=== PATIENT | female | born 1955 | race Caucasian/White ===

== ENCOUNTER 2017-04-18 10:46 | Inpatient (IN) | payer BC ==
[2017-04-18] MEDS ORDERED: NS 1,000 ML IV ONE ×2 (11:04→11:18)
[2017-04-18] MEDS ORDERED: ONDANSETRON 4 MG/2 ML VIAL IVP ONE (11:04)
--- NOTE | 2017-04-18 11:05 | CPEKG ---
Heart Rate: 80 RR Interval: 750 P-R Interval: 164 QRSD Interval: 106 QT Interval: 360 QTC Interval: 416 P [place]: 35 QRS [place]: 52 T Wave [place]: 73 EKG Severity - NORMAL ECG - EKG Impression: SINUS RHYTHM Electronically Signed By: Chris Merchant 18-Apr-2017 11:22:17
--- NOTE | 2017-04-18 11:05 | CPEKG ---
Heart Rate: 80 RR Interval: 750 P-R Interval: 164 QRSD Interval: 106 QT Interval: 360 QTC Interval: 416 P [place]: 35 QRS [place]: 52 T Wave [place]: 73 EKG Severity - NORMAL ECG - EKG Impression: SINUS RHYTHM Electronically Signed By: Chris Merchant 18-Apr-2017 11:22:17
[2017-04-18] MEDS ORDERED: fentaNYL 100 MCG/2 ML INJ IVP ONE (11:21)
--- NOTE | 2017-04-18 11:21 | EDPHY ---
H & P Stated Complaint: n/v post hemorrhoidectomy yesterday/hypotensive Time Seen by Provider: 04/18/17 10:58 HPI/ROS: CHIEF COMPLAINT: Vomiting, hypotension HISTORY OF PRESENT ILLNESS: The patient is a 61-year-old female with history of asthma & bipolar who comes to the emergency department sent from Dr. Miguelangel Osman's office. She had a thrombosed external hemorrhoid removed in the office yesterday. She had of small amount of bleeding during the procedure and only a small amount of bleeding afterwards however she has been vomiting throughout the night. She states that she vomited 5 times. In his office she was pale and hypotensive. He sent her here with her daughter. She remains hypotensive here at triage. She states that she feels generally weak. No focal weakness. She states that she is exhausted from vomiting so many times. No fevers. She denies shortness of breath although she is satting 89-91%. No recent cough or illness. REVIEW OF SYSTEMS: Constitutional: denies: chills, fever, recent illness, recent injury EENTM: denies: blurred vision, double vision, nose congestion Respiratory: denies: cough, shortness of breath Cardiac: denies: chest pain, irregular heart rate, lightheadedness, palpitations Gastrointestinal/Abdominal: See HPI Genitourinary: denies: dysuria, frequency, hematuria, pain Musculoskeletal: denies: joint pain, muscle pain Skin: denies: lesions, rash, jaundice, bruising Neurological: denies: headache, numbness, paresthesia, tingling, dizziness, weakness Hematologic/Lymphatic: denies: blood clots, easy bleeding, easy bruising Immunologic/allergic: denies: HIV/AIDS, transplant EXAM: GENERAL: Pale, weak HEAD: Atraumatic, normocephalic. EYES: Pupils equal round and reactive to light, extraocular movements intact, sclera anicteric, conjunctiva are normal. ENT: TMs normal, nares patent, oropharynx clear without exudates. Moist mucous membranes. NECK: Normal range of motion, supple without lymphadenopathy or JVD. LUNGS: Breath sounds clear to auscultation bilaterally and equal. No wheezes rales or rhonchi. HEART: Regular rate and rhythm without murmurs, rubs or gallops. ABDOMEN: Soft, nontender, normoactive bowel sounds. No guarding, no rebound. No masses appreciated. Patient had her hemorrhoid evaluated in the office this morning. She declines having me also evaluate it. According Dr. Osman she has bruising but no significant bleeding or sign of infection. BACK: No CVA tenderness, no spinal tenderness, step-offs or deformities EXTREMITIES: Normal range of motion, no pitting or edema. No clubbing or cyanosis. NEUROLOGICAL: Cranial nerves II through XII grossly intact. Normal speech, normal gait. 5/5 strength, normal movement in all extremities, normal sensation PSYCH: Normal mood, normal affect. SKIN: Warm, dry, normal turgor, no visible rashes or lesions. Source: Patient, Family, RN/MD Exam Limitations: No limitations - Personal History Current Tetanus/Diphtheria Vaccine: Yes - Medical/Surgical History Hx Asthma: Yes Hx Chronic Respiratory Disease: No Hx Diabetes: No Hx Cardiac Disease: No Hx Renal Disease: No Hx Cirrhosis: No Hx Alcoholism: No Hx HIV/AIDS: No Hx Splenectomy or Spleen Trauma: No Other PMH: Asthma, CPAP at night, mood disorder/bilat knee replacement - Family History Significant Family History: No pertinent family hx - Social History Smoking Status: Never smoked Alcohol Use: Sober Drug Use: None Constitutional: Initial Vital Signs Temperature (C) 37.3 C 04/18/17 10:53 Heart Rate 80 04/18/17 10:53 Respiratory Rate 20 04/18/17 10:53 Blood Pressure 90/62 L 04/18/17 10:53 O2 Sat (%) 93 04/18/17 10:53 O2 Delivery Mode Room Air O2 (L/minute) 2 Allergies/Adverse Reactions: No Known Allergies Allergy (Unverified 04/18/17 10:51) Home Medications: Medication Instructions Recorded Acetaminophen [Tylenol 325mg (*)] 325 mg PO DAILY PRN 04/18/17 Amoxicillin/Clavulanate Pot 875 mg PO BID PRN 04/18/17 [Augmentin 875 MG TAB (*)] Beclomethasone Qvar 80 [Qvar 80 1 puffs IH BIDI 04/18/17 (*)] Gabapentin [Neurontin 300 MG (*)] 300 mg PO BID 04/18/17 Ibuprofen [Motrin (*)] 200 mg PO DAILY PRN 04/18/17 Ipratropium/Albuterol [Duoneb (*)] 3 ml IH QID PRN 04/18/17 Mometasone/Formoterol [Dulera 200 2 puffs IH BID 04/18/17 Mcg/5 Mcg Inhaler] Pantoprazole Sodium [Protonix 40mg 40 mg PO DAILY 04/18/17 (*)] QUEtiapine FUMARATE [Seroquel 200 200 mg PO HS 04/18/17 mg (*)] Rizatriptan Benzoate [Rizatriptan] 10 mg PO DAILY PRN 04/18/17 Tiotropium Inhaler [Spiriva 1 inh IH DAILY 04/18/17 Inhaler] Xolair 150mg 150 mg SQ Q30D 04/18/17 carBAMazepine ER [Tegretol Xr] 400 mg PO BID 04/18/17 diphenhydrAMINE [Benadryl 25 MG 25 - 50 mg PO DAILY PRN 04/18/17 (*)] hydrOXYzine HCL [hydrOXYzine HCL 50 mg PO Q8HRS PRN 04/18/17 (RX)] methylPREDNISolone 4 mg PO DAILY PRN 04/18/17 [Methylprednisolone] traZODone [traZODONE 50MG (*)] 50 mg PO HS 04/18/17 Medical Decision Making - Diagnostics EKG Interpretation: An EKG obtained and was read and documented in trace view. Please see trace view for full reading and report. Sinus rhythm, no acute ischemic changes ED Course/Re-evaluation: 1:[address] Osman is here and evaluated the patient. She remains slightly hypotensive and pale despite 2 L of fluid. Her blood pressure has improved. We will admit for continued treatment and evaluation. We agreed not to order lactate at this time because would likely be falsely elevated from the surgery. 1:10 p.m. I discussed the case Janelle who will consult from the hospital service. 2:30 p.m. discussed the case with Dr. Andres Nuñez . The patient has improved with IV fluids. She is still slightly hypotensive but MAP greater than 70. We decided to go ahead and lactate and cultures. The patient has been given antibiotics by Dr. Osman. Differential Diagnosis: Partial list of the Differential diagnosis considered include but were not limited to; dehydration, gastritis, and although unlikely based on the history and physical exam, I also considered sepsis, PE, acute coronary disease. I discussed these differential diagnoses and the plan with the [patient] as well as the usual and expected course. The [patient understands] that the diagnosis is provisional and that in medicine we are not always correct and that further workup is often warranted. Usual and customary warnings were given. All of the [patient's] questions were answered. The [patient was] instructed to return to the emergency department should the symptoms at all worsen or return, otherwise to followup with the physician as we discussed. - Data Points Laboratory Results: Laboratory Results 04/18/17 11:10 04/18/17 11:10 Medications Given: Acetaminophen (Tylenol) 650 mg PO Q4HRS PRN PRN Reason: Pain, Mild/Fever, Can Take PO Stop: 10/15/17 13:11 Last Admin: 04/18/17 23:52 Dose: 650 mg Albuterol/Ipratropium (Duoneb) 3 ml IH QID PRN PRN Reason: Short of Breath/Dyspnea Stop: 10/15/17 14:40 Last Admin: 04/18/17 16:21 Dose: 3 ml Beclomethasone Dipropionate (Qvar 80) 1 puffs IH BID WESLEY Stop: 10/15/17 20:59 Last Admin: 04/18/17 21:07 Dose: 1 puffs Calcium Carbonate (Oyster Shell Calcium) 500 mg PO BID WESLEY Stop: 10/15/17 14:59 Last Admin: 04/18/17 20:46 Dose: 500 mg Gabapentin (Neurontin) 300 mg PO BID [place] Stop: 10/15/17 20:59 Last Admin: 04/18/17 20:46 Dose: 300 mg Hydromorphone/Sodium Chloride (Hydromorphone) 0.2 - 0.4 mg IVP Q4HRS PRN PRN Reason: Pain, Severe Unable to Take PO Stop: 04/28/17 13:11 Last Admin: 04/19/17 06:44 Dose: 0.4 mg Hydroxyzine HCl (Hydroxyzine Hcl) 50 mg PO Q8H PRN PRN Reason: Sleep/Insomnia Stop: 10/15/17 20:14 Last Admin: 04/18/17 20:46 Dose: 50 mg Sodium Chloride (Ns) 1,000 mls @ 125 mls/hr IV CONT W[place]LEY Stop: 10/15/17 13:14 Last Admin: 04/18/17 23:52 Dose: 1,000 mls Ertapenem 1 gm/ Sodium (Chloride) 100 mls @ 200 mls/hr IV DAILY EWSLEY PRN Reason: Protocol Stop: 05/18/17 13:59 Last Admin: 04/18/17 16:34 Dose: 100 mls Vancomycin HCl 1.25 gm/ (Dextrose) 250 mls @ 166.667 mls/hr IV Q24H [place] Stop: 05/18/17 15:29 Last Admin: 04/18/17 17:20 Dose: 250 mls Miscellaneous Medication (Mometasone/Formoterol [Dulera 200 Mcg/5 Mcg Inhaler]) 2 puffs IH BID [place] Stop: 10/15/17 20:59 Last Admin: 04/18/17 21:46 Dose: Not Given Ondansetron HCl (Zofran) 4 mg IVP Q4HRS PRN PRN Reason: Nausea/Vomiting, Can't Take PO Stop: 10/15/17 13:11 Last Admin: 04/18/17 16:05 Dose: 4 mg Prednisone (Prednisone) 20 mg PO DAILY [facility] Stop: 10/15/17 14:59 Last Admin: 04/18/17 17:42 Dose: Not Given Quetiapine Fumarate (Seroquel) 200 mg PO HS [facility] Stop: 10/15/17 20:59 Last Admin: 04/18/17 20:46 Dose: 200 mg Trazodone HCl (Trazodone) 50 mg PO HS [facility] Stop: 10/15/17 20:59 Last Admin: 04/18/17 20:46 Dose: 50 mg Discontinued Medications Fentanyl (Sublimaze) 50 mcg IVP EDNOW ONE Stop: 04/18/17 11:22 Last Admin: 04/18/17 11:26 Dose: 50 mcg Sodium Chloride (Ns) 1,000 mls @ 0 mls/hr IV EDNOW ONE; Wide Open PRN Reason: Protocol Stop: 04/18/17 11:05 Last Admin: 04/18/17 11:10 Dose: 1,000 mls Sodium Chloride (Ns) 1,000 mls @ 0 mls/hr IV EDNOW ONE; Wide Open PRN Reason: Protocol Stop: 04/18/17 11:19 Last Admin: 04/18/17 11:19 Dose: 1,000 mls Ondansetron HCl (Zofran) 4 mg IVP EDNOW ONE Stop: 04/18/17 11:05 Last Admin: 04/18/17 11:10 Dose: 4 mg Departure - Departure Disposition: [facility] Inpatient Acute Clinical Impression: Vomiting Qualifiers: Vomiting type: unspecified Vomiting Intractability: unspecified Nausea presence : with nausea Qualified Code(s): R11.2 - Nausea with vomiting, unspecified Hypotension Qualifiers: Hypotension type: unspecified hypotension type Qualified Code(s): I95.9 - Hypotension, unspecified Condition: Critical
[2017-04-18 11:28] LABS: PLATELET COUNT 337 10^3/uL (150-400)
[2017-04-18] MEDS ORDERED: HYDROmorphONE/DILAUDID 1 MG/ML INJ IVP PRN (13:12)
[2017-04-18] MEDS ORDERED: ONDANSETRON DISINTEGRATING 4 MG TAB PO PRN (13:12)
[2017-04-18] MEDS ORDERED: PROMETHAZINE HCL 25 MG/ML INJ IVP PRN (13:12)
--- NOTE | 2017-04-18 14:12 | GHP ---
[f rep st] HISTORY AND PHYSICAL DATE OF ADMISSION: 04/18/2017 CHIEF COMPLAINT: Nausea, vomiting and general malaise. HISTORY OF PRESENT ILLNESS: This is a 61-year-old female who I originally met yesterday in the offic e. At that time, the patient was complaining of perianal pain and tenderness. In the office, I iden tified a small thrombosed external hemorrhoid, and she underwent uneventful incisional drainage of th at hemorrhoid. She left, felt well for the first few hours. Had a bowel movement which had a little bit of blood in it but was otherwise stable. She states that last evening she began to have periana l tenderness once the local anesthesia wore off, and that she began to have nausea, vomiting and gene ral malaise. This persisted through the night. She subsequently called the office this morning. I asked her to come in urgently. I evaluated her in the office. She was hypotensive and looked pale a nd diaphoretic. She denied having any fevers or chills but stated that she just felt unwell. At my request, I transported her from my office with my nurse to the emergency department for evaluation. Since being in the emergency department, she has received some fluid. Her pressure has come up somew hat. She continues to look ill. Her pain is now better and she feels more stable but still looks si ck. PAST MEDICAL HISTORY: Asthma. PAST SURGICAL HISTORY: Bilateral knee replacement a year ago. No abdominal surgeries. External hem orrhoid incisional drainage performed yesterday. FAMILY HISTORY: Noncontributory. SOCIAL HISTORY: Denies illicit drug use. Does use social alcohol. Is a nurse. REVIEW OF SYSTEMS: A full 10-point review was performed and, unless explicitly stated above, is othe rwise negative. PHYSICAL EXAM: VITAL SIGNS: Blood pressure 100/56, temperature 37.3, heart rate 70, and she is 94% on 2 L. CONSTITUTIONAL: She appears sick. She is not in apparent distress, but she is uncomfortabl e. HEENT: Eyes are sunken. Her pupils are equal, round, and reactive to light. Her extraocular mo vements are intact. Ears, nose, mouth and throat: She has dry mucous membranes. Her hearing is nor mal. She has no oral mucosal ulcers. CARDIOVASCULAR: She is hypertensive. She has a regular rate and rhythm. RESPIRATORY: Her lungs are clear to auscultation bilaterally. She has no respiratory d istress. GI: She has normoactive bowel sounds. ABDOMEN: Soft, nondistended, nontender. RECTAL: She has some bruising near the area of incisional drainage. It is tender. I do not appreciate any n ew signs of fluctuance. I do not appreciate any cellulitis or any other concerning findings. SKIN: Warm, normal color. No rashes or abrasions. MUSCULOSKELETAL: She has normal strength. No tendern ess. With normal range of motion. NEUROLOGIC: She is alert and oriented. Her cranial nerves 2-12 are intact. She is weak but almost universally. She has no numbness or any other acute neurologic f indings. PSYCH: She is interacting appropriately, although she appears tired. LYMPH, HEME AND IMMU NOLOGIC: No cervical or supraclavicular lymphadenopathy identified. LABORATORY DATA: White blood cell count elevated to 20,000 with a left shift. H and H are stable at 14 and 41. Chemistry is unremarkable with the exception of an elevated creatinine of 1.5. IMAGING: Includes a chest x-ray, the images of which were personally reviewed by me, which is normal . ASSESSMENT AND PLAN: 61-year-old female status post in-office incisional drainage of a thrombosed ex ternal hemorrhoid. Now with nausea, vomiting, and elevated leukocytosis with dehydration. I am uncl ear as to what is causing this as I do not really see any acute signs other than what I would expect postoperatively from an in-office incisional drainage. There is a little bit of bruising, but I do n ot see any large sores that would be driving this what appears to be somewhat of a septic response, a lthough the patient is not tachycardic. She did respond to fluid in the emergency department. I do feel that she would benefit from at least a night of admission with fluid hydration and empiric antib iotics, although I do not really know what I am treating at this point. I have asked the Medicine Se antonella to see the patient as well for their assistance in treating this patient to ensure that I have not missed anything. I discussed my plans with the patient. She understands. /[id number]/MOD
[2017-04-18 14:39] LABS: INR 1.05 (0.83-1.16); PROTIME(PATIENT) 13.6 SEC (12.0-15.0)
[2017-04-18] MEDS ORDERED: Rizatriptan Benzoate [Rizatriptan] 10 MG PO PRN (14:41)
[2017-04-18] MEDS ORDERED: methylPREDNISolone 4 MG TAB PO PRN (14:41)
--- NOTE | 2017-04-18 14:44 | ASMTCMCOM ---
CM Note CM Note Notes: Pt. is a 61-year-old woman admitted in observation status w/ nausea, vomiting, and general malaise. Per chart, Pt. had hemorrhoid incisional drainage yesterday. Pt. lives w/ her , Isaiah. Plan for independent d/c when ready. Date Signed: 04/18/2017 02:43 PM Electronically Signed By:Jo-Ann Law LCSW
[2017-04-18] MEDS ORDERED: VANCOMYCIN 1.25 GM in D5W 250 ML IV SCH (15:30)
[2017-04-18] MEDS: NS 1,000 ML IV SCH ×2 (15:31→23:52)
[2017-04-18] MEDS: HYDROmorphone HCL/NS/PF 0.4 MG/2 ML SYR IVP PRN (15:31)
[2017-04-18] MEDS: ACETAMINOPHEN 325 MG TAB PO PRN ×2 (15:40→23:52)
[2017-04-18] MEDS: ONDANSETRON 4 MG/2 ML VIAL IVP PRN (16:05)
[2017-04-18] MEDS: IPRATROPIUM/ALBUTEROL 3 ML DEYVIAL IH PRN (16:21)
[2017-04-18] MEDS: ERTAPENEM 1 GM in NS 100 ML IV SCH (16:34)
--- NOTE | 2017-04-18 17:08 | GCON ---
[f rep st] CONSULTATION REASON FOR CONSULTATION: I was asked by Dr. Osman to see this patient in regard to her hypotens ion. HISTORY OF PRESENT ILLNESS: This is a 61-year-old female with asthma who had an external thrombosed hemorrhoid excised yesterday by Dr. Osman. She was not started on any new medications afterward . When she went home, she had significant emesis overnight, about 5 times, nonbloody. She feels juan antonio y poorly. She has had some chills, as well. She has a lot of pain at the site of the hemorrhoid. S he has a cough, but it is chronic. She has no other new rash. No real joint complaints. She has no dysuria. She is on methylprednisone occasionally for her asthma, though she tells me she takes a fe w times a year. PAST MEDICAL/SURGICAL HISTORY: 1. Asthma. 2. Bilateral knee replacement. 3. External thrombosed hemorrhoid. MEDICATIONS: Please see medication reconciliation. FAMILY HISTORY: Reviewed and noncontributory. SOCIAL HISTORY: Does not use illegal drugs. She occasionally drinks alcohol. REVIEW OF SYSTEMS: A 10-point review of systems is conducted and is negative except per HPI. PHYSICAL EXAMINATION: Initial blood pressure was 90/62, heart rate 80, respiration rate 20, saturati ng 93% on room air, T-max 38.1. GENERAL: The patient is a pleasant female who appears quite uncomfo rtable, in no acute distress. HEENT: Normocephalic, atraumatic. CARDIOVASCULAR: Regular rate and rhythm. She has 1/6 systolic murmur. PULMONARY: Lungs clear to auscultation bilaterally. ABDOMEN: Soft. Very mildly tender to palpation. No guarding or rebound. No masses appreciated. : No r jairo. An area of erythema over the left buttock close to where her hemorrhoid was I and D'd. It is w arm. I do not appreciate any real induration or fluctuance. Otherwise, no Delac[place]. NEUROLOGIC: Aler t and oriented x3. Moving all extremities. PSYCHIATRIC: Normal mood and affect. LABORATORY: White count is 20.3 with 93% neutrophils. INR is 1. Creatinine is 1.5. Troponin is ne gative. Influenza is pending. DATA: 1. I discussed this with Dr. Merchant as well as Dr. Osman. 2. I personally viewed and interpreted her chest x-ray; this shows normal heart size AND no acute in filtrates. 3. I reviewed her EKG THAT shows sinus rhythm. There are no ST or T-wave changes. It is normal. IMPRESSION AND PLAN: 1. Hypotension: Suspect hypovolemia as well as sepsis physiology. It is improved with IV fluids in the emergency department. Will continue to monitor. She has also been on somewhat chronic steroids . Could be a component of adrenal insufficiency. 2. Sepsis: I think the source is cellulitis surrounding the external hemorrhoid which was I and D'd . Agree with empiric ertapenem for which Dr. Osman has written. I will add vancomycin, as well , since the incision was made in a physician's office. Blood cultures are being drawn. Will check l actate. 3. Possible adrenal insufficiency: I will give her a slightly higher dose prednisone. She is not c urrently in shock, but if her condition worsens, would add stress dose steroids. 4. Asthma: Seems stable. Will continue her inhalers. 5. Suspected acute kidney injury: This will be prerenal and likely resolve with IV fluids. Thank you for this consultation. We will continue to follow with you. /[id number]/MODL
[2017-04-18] MEDS: CALCIUM CARBONATE 500 MG TAB PO SCH ×2 (17:42→20:46)
[2017-04-18] MEDS: predniSONE 20 MG TAB PO SCH (17:42)
[2017-04-18] MEDS: hydrOXYzine HCL 50 MG TAB PO PRN (20:46)
[2017-04-18] MEDS: QUEtiapine FUMARATE 200 MG TAB PO SCH (20:46)
[2017-04-18] MEDS: GABAPENTIN 300 MG CAP PO SCH (20:46)
[2017-04-18] MEDS: traZODone 50 MG TAB PO SCH (20:46)
[2017-04-18] MEDS: BECLOMETHASONE QVAR 80 MDI IH SCH (21:07)
[2017-04-18] MEDS: Mometasone/Formoterol [Dulera 200 Mcg/5 Mcg Inhaler] IH SCH (21:46)
[2017-04-19] MEDS: HYDROmorphone HCL/NS/PF 0.4 MG/2 ML SYR IVP PRN (06:44)
[2017-04-19 07:00] LABS: PLATELET COUNT 230 10^3/uL (150-400)
[2017-04-19] MEDS: ONDANSETRON 4 MG/2 ML VIAL IVP PRN (08:59)
[2017-04-19] MEDS: ERTAPENEM 1 GM in NS 100 ML IV SCH (08:59)
[2017-04-19] MEDS ORDERED: TIOTROPIUM INHALER 18 MCG/DOSE 5 DOSE/MDI IH SCH (09:00)
[2017-04-19] MEDS: ACETAMINOPHEN 325 MG TAB PO PRN ×2 (09:09→16:56)
[2017-04-19] MEDS: BECLOMETHASONE QVAR 80 MDI IH SCH ×2 (09:13→21:13)
[2017-04-19] MEDS: Mometasone/Formoterol [Dulera 200 Mcg/5 Mcg Inhaler] IH SCH ×3 (09:14→21:14)
--- NOTE | 2017-04-19 09:56 | HOSPPROG ---
Hospitalist Progress Note Assessment/Plan: Sepsis secondary to librado-anal cellulitis (?abscess) s/p excision of thrombosed external hemorrhoid POD #2 - Also note pyuria on UA. BCx's pending. Lactate nl. WBC's remain elevated. -area of fluctuance on exam, surgery to perform bedside I&D, wound culture ordered -cont erta / vanc, follow culture data and tailor atbx as indicated -pain control ?Adrenal insufficiency - hypotension in setting of chronic steroid use. -cont higher dose of pred -stress dose steroids if problems with hypotension GEREMIAS - Baseline unknown, Cr 1.5 --> 1.4. Still appears dry. -1L NS bolus now -cont IVF's Asthma - no e/o acute exacerbation -cont home meds Full code Dispo - change to inpt, will requiring ongoing inpt care for sepsis / cellulitis / abscess Subjective: Pt c/o nausea after taking some broth. She c/o some abdominal bloating. Still having some pain from excised hemorrhoid. Tmax 38.4 overnight. No vomiting. Objective: Vital Signs Temp Pulse Resp BP Pulse Ox 36.9 C 88 20 96/59 L 93 04/19/17 07:32 04/19/17 07:32 04/19/17 07:32 04/19/17 07:32 04/19/17 07:32 Laboratory Results 04/19/17 06:30 04/19/17 06:30 04/18/17 04/19/17 04/20/17 05:59 05:59 05:59 Intake Total 750 Output Total 400 Balance 350 PT 13.6 SEC (12.0-15.0) 04/18/17 11:15 INR 1.05 (0.83-1.16) 04/18/17 11:15 - Physical Exam Constitutional: no apparent distress Eyes: PERRL Ears, Nose, Mouth, Throat: moist mucous membranes Cardiovascular: regular rate and rhythym Respiratory: no respiratory distress, clear to auscultation Gastrointestinal: normoactive bowel sounds, soft, non-tender abdomen Genitourinary: other (right buttock with erythema and fluctuance concerning for abscess) Skin: warm Neurologic: AAOx3 Psychiatric: interacting appropriately ICD10 Worksheet Patient Problems: Problems Problem Status Onset Hypotension Acute Vomiting Acute
[2017-04-19] MEDS ORDERED: NS 1,000 ML IV ONE (10:10)
[2017-04-19] MEDS ORDERED: LIDOCAINE 1% 2 ML INJ ID ONE (10:16)
[2017-04-19] MEDS ORDERED: LIDOCAINE 1% 5 ML SDV ONE (10:19)
--- NOTE | 2017-04-19 10:31 | PDMN ---
Medical Necessity Medical necessity: C/M review: Pt. meets INPT criteria under MCG M-70 Cellulitis; Acute and persistent sepsis secondary to librado-anal cellulitis ( possible abscess) S/P excision of thrombosed external hemorrhoid, pyuria on UA, questionable adrenal insufficiency, hypotension in the setting of chronic steroid use, acute kidney injury, WBC 20.39, 19.95, procalcitonin 2.16, 38.4 T max, BP range 100/56-89/48 requiring ongoing IV Ertapenem QD, Vancomycin Q 24 hrs., IV fluids, comorbid asthma. MD anticipates > 2 MN for ongoing med nec for eval and TX of above.
[2017-04-19] MEDS: oxyCODONE IR 5 MG TAB PO PRN ×2 (10:38→16:57)
--- NOTE | 2017-04-19 11:08 | ASMTCMCOM ---
CM Note CM Note Notes: Pt had stat team call yesterday afternoon, she is septic and had blood cx drawn. PT to evaluate her when she is feeling better, otherwise CM anticipates she will be independent when medically stable, LYDIA w/f. Date Signed: 04/19/2017 11:08 AM Electronically Signed By:Marilu Blake RN
[2017-04-19] MEDS: IPRATROPIUM/ALBUTEROL 3 ML DEYVIAL IH PRN (11:42)
[2017-04-19] MEDS: PANTOPRAZOLE SODIUM 40 MG TAB PO SCH (11:48)
[2017-04-19] MEDS: predniSONE 20 MG TAB PO SCH (11:48)
[2017-04-19] MEDS: CALCIUM CARBONATE 500 MG TAB PO SCH ×2 (11:48→21:12)
[2017-04-19] MEDS: GABAPENTIN 300 MG CAP PO SCH ×2 (11:48→21:12)
[2017-04-19] MEDS: NS 1,000 ML IV SCH ×2 (12:05→21:55)
--- NOTE | 2017-04-19 12:50 | SOAPPROG ---
SOAP Progress Note Assessment/Plan: Assessment: 61yo F s/p hemorrhoidectomy in the office with perianal cellulitis ? abscess of left buttock on exam today. Incision and drainage performed. See procedure note Wound culture pending, blood cultures pending IV ertapenem and vancomycin Appreciate hospitalists. Continue inpatient. Seen c Dr. Joel and Dr. Talavera. S: feeling worse this morning. perirectal pain. O: laying in bed, appears acutely ill, at bedside No increased WOB Skin warm to the touch Rectal exam shows unremarkable hemorrhoidectomy site. Bruising of left buttock with evolving area of induration and fluctuance. Incision and drainage performed - see procedure note. No gross purulence. Objective: Vital Signs Temp Pulse Resp BP Pulse Ox 36.9 C 88 18 92/52 L 93 04/19/17 11:36 04/19/17 11:40 04/19/17 11:40 04/19/17 11:36 04/19/17 11:40 04/18/17 04/19/17 04/20/17 05:59 05:59 05:59 Output Total 550 Balance -550 PT 13.6 SEC (12.0-15.0) 04/18/17 11:15 INR 1.05 (0.83-1.16) 04/18/17 11:15 ICD10 Worksheet Patient Problems: Problems Problem Status Onset Hypotension Acute Vomiting Acute
--- NOTE | 2017-04-19 15:18 | GPN ---
[f rep st] PROCEDURE NOTE DATE OF PROCEDURE: 04/19/2017 PREPROCEDURE DIAGNOSIS: Left buttock induration and fluctuance. POSTPROCEDURE DIAGNOSIS: Left buttock induration and fluctuance. PROCEDURE PERFORMED: Incision and drainage of left buttock induration and fluctuance. INDICATION: The patient is a 61-year-old woman who underwent hemorrhoidectomy and developed symptoms of infection. She was admitted for IV antibiotics. Today, she developed worsening induration and e rythema of her left buttock. DESCRIPTION OF PROCEDURE: The patient was verbally consented for the procedure. A timeout was perfo rmed. The area was prepped in the usual sterile fashion. I infiltrated the site with 5 cc of 1% lid ocaine. I made a cruciate incision over top of the area of induration. I dissected down through the soft tissue. There was a small amount of serous fluid but no gross purulence. I probed without def ining a true abscess cavity. I irrigated the wound with 10 cc of normal saline. A wound culture was obtained. I then dressed the wound with plain gauze dressing. She tolerated the procedure well. /[id number]/MODL
[2017-04-19] MEDS ORDERED: VANCOMYCIN 1.25 GM in D5W 250 ML IV SCH (17:00)
[2017-04-19] MEDS: QUEtiapine FUMARATE 200 MG TAB PO SCH (21:12)
[2017-04-19] MEDS: traZODone 50 MG TAB PO SCH (21:12)
[2017-04-19] MEDS: hydrOXYzine HCL 50 MG TAB PO PRN (21:53)
[2017-04-20] MEDS: ACETAMINOPHEN 325 MG TAB PO PRN ×3 (02:06→20:33)
[2017-04-20] MEDS: oxyCODONE IR 5 MG TAB PO PRN ×4 (03:53→20:33)
[2017-04-20 06:10] LABS: PLATELET COUNT 158 10^3/uL (150-400)
[2017-04-20] MEDS ORDERED: PROTOCOL CALCIUM 1 DOSE IV PRN (06:26)
[2017-04-20] MEDS: NS 1,000 ML IV SCH (06:50)
[2017-04-20] MEDS: ERTAPENEM 1 GM in NS 100 ML IV SCH (08:42)
[2017-04-20] MEDS: PANTOPRAZOLE SODIUM 40 MG TAB PO SCH (08:44)
[2017-04-20] MEDS: CALCIUM CARBONATE 500 MG TAB PO SCH ×2 (08:44→20:33)
[2017-04-20] MEDS: GABAPENTIN 300 MG CAP PO SCH ×2 (08:44→20:33)
[2017-04-20] MEDS: Mometasone/Formoterol [Dulera 200 Mcg/5 Mcg Inhaler] IH SCH ×2 (10:56→19:42)
[2017-04-20] MEDS: TIOTROPIUM INHALER 18 MCG/DOSE 5 DOSE/MDI IH SCH (10:56)
[2017-04-20] MEDS: BECLOMETHASONE QVAR 80 MDI IH SCH ×2 (10:57→19:42)
[2017-04-20] MEDS ORDERED: POLYETHYLENE GLYCOL 3350 17 GM PKT PO PRN (11:01)
--- NOTE | 2017-04-20 11:03 | HOSPPROG ---
Hospitalist Progress Note Assessment/Plan: Sepsis secondary to librado-anal cellulitis s/p excision of thrombosed external hemorrhoid POD #3 - BCx's NGTD. Lactate nl. WBC's trending down. Clinically improving. -Bedside I&D yesterday, no orgs on GS, wound Cx pending -cont erta / vanc, follow culture data and tailor atbx as indicated -consider ID consult if not improving -pain control ?Adrenal insufficiency - she is not actually on chronic steroids, doubt adrenal insufficiency -dc prednisone GEREMIAS - Cr normalized with IVF's, can stop now Asthma - no e/o acute exacerbation. Confirmed with pt that she does not take regular steroids. -dc prednisone, no wheezing Full code Dispo - cont inpt Subjective: Pt feels better today. Reports improved pain after bedside I&D of left buttock yesterday. No fevers overnight. No N/V/D. Objective: Vital Signs Temp Pulse Resp BP Pulse Ox 36.3 C 72 18 102/63 96 04/20/17 07:31 04/20/17 07:31 04/20/17 07:31 04/20/17 07:31 04/20/17 07:31 Microbiology 04/19/17 11:30 Gram Stain - Final Buttock - Swab Laboratory Results 04/20/17 05:33 04/20/17 04:45 04/19/17 04/20/17 04/21/17 05:59 05:59 05:59 Intake Total 3975 Output Total 2350 Balance 1625 PT 13.6 SEC (12.0-15.0) 04/18/17 11:15 INR 1.05 (0.83-1.16) 04/18/17 11:15 - Physical Exam Constitutional: no apparent distress Eyes: PERRL Ears, Nose, Mouth, Throat: moist mucous membranes Cardiovascular: regular rate and rhythym, no murmur, rub, or gallop Respiratory: no respiratory distress, clear to auscultation Gastrointestinal: normoactive bowel sounds, soft, non-tender abdomen Skin: other (left buttock with more prominent cellulitis, incision without purulent drainage) Musculoskeletal: full muscle strength Neurologic: AAOx3 Psychiatric: interacting appropriately ICD10 Worksheet Patient Problems: Problems Problem Status Onset Hypotension Acute Vomiting Acute
[2017-04-20] MEDS: predniSONE 20 MG TAB PO SCH (11:25)
--- NOTE | 2017-04-20 11:52 | SOAPPROG ---
SOAP Progress Note Assessment/Plan: Assessment: 61yo F s/p hemorrhoidectomy in the office with perianal cellulitis Incision and drainage performed yesterday of left buttock induration. No purulence. Wound culture pending. Clinically improved today. Erythema improving and less indurated in the area. Unsure if erythema and induration related to hemorrhoidectomy or a separate process. Ipsilateral but far away from incision IV ertapenem and vancomycin Appreciate hospitalists. Continue inpatient. Discussed c Dr. Joel. S: feeling better this morning. pain less than yesterday. No fevers, slight chills. Minimal drainage from perirectal wound. O: sitting upright in chair, comfortable, NAD, sister at bedside No increased WOB Rectal exam shows unremarkable hemorrhoidectomy site. Bruising of left buttock improving. Area of induration and erythema of left buttock significantly smaller than yesterday, less tender to palpation. No purulence. I&D wound CDI, gauze dressing placed, no packing. 04/28/17 11:45 Objective: Vital Signs Temp Pulse Resp BP Pulse Ox 36.3 C 72 18 102/63 96 04/20/17 07:31 04/20/17 07:31 04/20/17 07:31 04/20/17 07:31 04/20/17 07:31 Microbiology 04/19/17 11:30 Gram Stain - Final Buttock - Swab Laboratory Results 04/20/17 05:33 04/20/17 04:45 04/19/17 04/20/17 04/21/17 05:59 05:59 05:59 Intake Total 3975 Output Total 2350 Balance 1625 PT 13.6 SEC (12.0-15.0) 04/18/17 11:15 INR 1.05 (0.83-1.16) 04/18/17 11:15 ICD10 Worksheet Patient Problems: Problems Problem Status Onset Hypotension Acute Vomiting Acute
[2017-04-20] MEDS ORDERED: CALCIUM GLUCONATE 50 ML IV ONE (12:55)
[2017-04-20] MEDS: DOCUSATE SODIUM 100 MG CAP PO SCH ×2 (13:08→20:33)
[2017-04-20] MEDS: ONDANSETRON 4 MG/2 ML VIAL IVP PRN (13:08)
[2017-04-20] MEDS: VANCOMYCIN 1.5 GM in D5W 250 ML IV SCH (17:22)
[2017-04-20] MEDS ORDERED: NS 1,000 ML IV SCH (19:00)
[2017-04-20] MEDS: IPRATROPIUM/ALBUTEROL 3 ML DEYVIAL IH PRN (19:41)
[2017-04-20] MEDS: traZODone 50 MG TAB PO SCH (20:33)
[2017-04-20] MEDS: QUEtiapine FUMARATE 200 MG TAB PO SCH (20:33)
[2017-04-20] MEDS: carBAMazepine ER 200 MG TAB PO SCH (20:33)
[2017-04-20] MEDS ORDERED: NS 500 ML IV ONE ×2 (22:37→23:00)
[2017-04-21] MEDS: oxyCODONE IR 5 MG TAB PO PRN ×3 (03:31→20:50)
[2017-04-21 04:00] LABS: PLATELET COUNT 174 10^3/uL (150-400)
[2017-04-21] MEDS: BECLOMETHASONE QVAR 80 MDI IH SCH ×2 (08:42→20:32)
[2017-04-21] MEDS: IPRATROPIUM/ALBUTEROL 3 ML DEYVIAL IH PRN (08:42)
[2017-04-21] MEDS: TIOTROPIUM INHALER 18 MCG/DOSE 5 DOSE/MDI IH SCH (08:42)
[2017-04-21] MEDS: Mometasone/Formoterol [Dulera 200 Mcg/5 Mcg Inhaler] IH SCH ×2 (08:42→20:33)
[2017-04-21] MEDS: PANTOPRAZOLE SODIUM 40 MG TAB PO SCH (09:00)
[2017-04-21] MEDS: GABAPENTIN 300 MG CAP PO SCH ×2 (09:00→20:50)
[2017-04-21] MEDS: DOCUSATE SODIUM 100 MG CAP PO SCH ×2 (09:00→20:50)
[2017-04-21] MEDS: carBAMazepine ER 200 MG TAB PO SCH ×2 (09:00→20:50)
[2017-04-21] MEDS: CALCIUM CARBONATE 500 MG TAB PO SCH ×2 (09:00→20:50)
[2017-04-21] MEDS: ERTAPENEM 1 GM in NS 100 ML IV SCH (09:41)
--- NOTE | 2017-04-21 10:41 | HOSPPROG ---
Hospitalist Progress Note Assessment/Plan: Sepsis secondary to librado-anal cellulitis s/p excision of thrombosed external hemorrhoid POD #4 - BCx's NGTD. Lactate nl. WBC's trending down. Clinically, she has persistent erythema of the buttock with fluctuance and tenderness extending into perineal region. -Bedside I&D 04/19 without return of pus, no orgs on GS, wound Cx pending -cont erta / vanc, follow culture data and tailor atbx as indicated -though decreasing wbc's noted, given worsening exam, will obtain pelvic MRI today to evaluate for abscess -will consult ID for opinion regarding atbx coverage -pain control ?Adrenal insufficiency - she is not actually on chronic steroids, thus prednisone was d/c'd. However, hypotension noted last night which improved with IVF's -will add-on AM cortisol to this morning's labs. If low, will do ACTH stim test in am GEREMIAS - Cr normalized with IVF's Asthma - no e/o acute exacerbation. Confirmed with pt that she does not take regular steroids. -cont home inhalers, prn albuterol Hypoxia - requiring 2-3 liters since admission. Initial CXR negative. May be a component of obesity hypoventilation. She has no tachycardia, chest pain or pleuritic symptoms. -IS -wean O2 as able Full code Dispo - cont inpt Subjective: Pt feels ok. Still having quite a bit of pain on bottom. She cannot sit or scoot. Had a fever yesterday afternoon. Low BP last night, requiring resumption of IVF's. No more shivering. Objective: Vital Signs Temp Pulse Resp BP Pulse Ox 36.6 C 74 16 103/69 97 04/21/17 08:00 04/21/17 08:46 04/21/17 08:46 04/21/17 08:00 04/21/17 08:46 Microbiology 04/19/17 11:30 Gram Stain - Final Buttock - Swab Laboratory Results 04/21/17 03:50 04/21/17 03:50 04/20/17 04/21/17 04/22/17 05:59 05:59 05:59 Intake Total 3975 4525 Output Total 2350 400 500 Balance 1625 4125 -500 PT 13.6 SEC (12.0-15.0) 04/18/17 11:15 INR 1.05 (0.83-1.16) 04/18/17 11:15 - Physical Exam Constitutional: no apparent distress Eyes: PERRL Ears, Nose, Mouth, Throat: moist mucous membranes Cardiovascular: regular rate and rhythym Respiratory: no respiratory distress, clear to auscultation Gastrointestinal: normoactive bowel sounds, soft, non-tender abdomen Genitourinary: other (left buttock with persisent erythema, no drainage from I& D site, but palpable fluctuance extending into perineal region) Skin: warm Musculoskeletal: full muscle strength Neurologic: AAOx3 Psychiatric: interacting appropriately ICD10 Worksheet Patient Problems: Problems Problem Status Onset Hypotension Acute Vomiting Acute
[2017-04-21] MEDS ORDERED: CALCIUM GLUCONATE 50 ML IV ONE (11:49)
[2017-04-21] MEDS: ALBUTEROL 3 ML DEYVIAL IH PRN ×2 (11:57→20:36)
[2017-04-21] MEDS: ENOXAPARIN 40 MG/0.4 ML SYR SC SCH (13:14)
[2017-04-21] MEDS: HYDROmorphone HCL/NS/PF 0.4 MG/2 ML SYR IVP PRN ×2 (14:18→18:28)
[2017-04-21] MEDS ORDERED: GADOBUTROL 10 ML VIAL IVP ONE (14:31)
--- NOTE | 2017-04-21 16:56 | SOAPPROG ---
SOAP Progress Note Assessment/Plan: Assessment: 61yo F s/p hemorrhoidectomy in the office with perianal cellulitis Incision and drainage performed over the weekend of left buttock induration. No purulence. Wound culture shows strep pyogenes group A Erythema worse of left buttock, worsening pain IV ertapenem and vancomycin Appreciate hospitalists. Id consult today Pelvic MRI Discussed with Dr. Talavera and Dr. Bolaños S: Feels worse again today. Unable to ambulate like she did yesterday. Worsening pain of buttock. O: sitting upright in chair, comfortable, NAD, daughter at bedside No increased WOB Rectal exam shows unremarkable hemorrhoidectomy site. Bruising of left buttock much more indurated, erythematous and tender today. I&D site clean and dry. Objective: Vital Signs Temp Pulse Resp BP Pulse Ox 37.3 C 83 16 102/50 L 95 04/21/17 16:00 04/21/17 16:00 04/21/17 16:00 04/21/17 16:00 04/21/17 16:00 Microbiology 04/19/17 14:40 Urine Culture - Final Urine,Clean Catch 04/19/17 11:30 Gram Stain - Final Buttock - Swab Wound Culture - Final Streptococcus Pyogenes Grp A Laboratory Results 04/21/17 03:50 04/21/17 03:50 04/20/17 04/21/17 04/22/17 05:59 05:59 05:59 Intake Total 3975 4525 Output Total 2350 400 500 Balance 1625 4125 -500 PT 13.6 SEC (12.0-15.0) 04/18/17 11:15 INR 1.05 (0.83-1.16) 04/18/17 11:15 ICD10 Worksheet Patient Problems: Problems Problem Status Onset Hypotension Acute Vomiting Acute
[2017-04-21] MEDS: VANCOMYCIN 1.5 GM in D5W 250 ML IV SCH (17:07)
[2017-04-21] MEDS: QUEtiapine FUMARATE 200 MG TAB PO SCH (20:50)
[2017-04-21] MEDS: traZODone 50 MG TAB PO SCH (20:50)
[2017-04-21] MEDS: ACETAMINOPHEN 325 MG TAB PO PRN (20:51)
--- NOTE | 2017-04-22 04:18 | GCON ---
[f rep st] CONSULTATION INPATIENT INFECTIOUS DISEASE CONSULTATION REFERRING PHYSICIAN: Mariaelena Talavera MD REASON FOR REFERRAL: Left buttock cellulitis, possible perirectal postoperative infection. HISTORY OF PRESENT ILLNESS: Patient is a 61-year-old female who was admitted to [facility] of [facility] through the emergency room on 04/18/2017. Patient had previously undergone an incisional draina ge of a small thrombosed external hemorrhoid in General Surgery office the week prior. Patient had i ncreasing perianal tenderness that evolved into nausea, vomiting, and general malaise. She was seen in followup at her surgeon's office where she was found to be hypotensive and diaphoretic. She was n oted in the ER to be generally weak and somewhat hypotensive. Her oxygen saturations were borderline low. She was admitted to the hospitalist service and begun on a combination of vancomycin and ertap enem. Her initial laboratory showed a significant leukocytosis to 20.4. There was some concern that induration in the gluteal area, somewhat from the perirectal region on the left side, rahda remigio a drainable collection. She underwent an incision and drainage of that on 04/19/2017. No signif icant fluid was recovered. The following day, on 04/20, she felt much better. Today, she has somewh at of a return of her general weakness and malaise, together with continued pain in the perirectal re gion. She underwent an MRI earlier today. She continues to tolerate her vancomycin ertapenem withou t clear issue. PAST MEDICAL HISTORY: Asthma. PAST SURGICAL HISTORY: 1. Status post bilateral total knee arthroplasties. 2. Status post external hemorrhoid incision and drainage. ANTIBIOTICS: 1. Vancomycin. 2. Ertapenem. ALLERGIES: Patient has no known medical allergies. SOCIAL HISTORY: Patient is a former nurse. She denies any significant tobacco, alcohol, or drug use . FAMILY HISTORY: Reviewed but noncontributory. REVIEW OF SYSTEMS: Other than that detailed above in the History of Present Illness, a comprehensive 10-system review is negative. PHYSICAL EXAMINATION: VITAL SIGNS: Temperature maximum 38.7, temperature current 36.8. Heart rate is 80, respiratory rate is 16, blood pressure is 109/62. GENERAL: Patient is a well-formed, overwei ght, older female in no acute distress. She is mildly toxic in appearance. She is alert and oriente d x3. She is pleasant in demeanor. HEENT: Normocephalic for age. Atraumatic. No scleral icterus. No oral lesion. No drainage from the nares. Eyes: Lids and conjunctivae are within normal limits . Pupils are equal and round bilaterally. NECK: Supple. No meningismus. LUNGS: Clear to auscult ation bilaterally with good effort. HEART: Regular rate and rhythm. No significant peripheral johnathon a. SKIN: Warm and dry to the touch. Patient has some induration notable in the left gluteal region . She has a superficial healing incisional drainage area on the left side. Her induration tracts up al to the perirectal verge. She is significantly tender on the left side at the perirectal region. No fluctuance noted. MUSCULOSKELETAL: No other muscle belly tenderness is noted. No joint line e ffusion or arthritis is seen. NEURO: Cranial nerves 2-12 seem to be intact. Peripheral sensation s eems intact in extremities. LABORATORY DATA: Patient has a CBC dated 04/21/2017, shows a white blood cell count of 9.7, hemoglob in 9.0, hematocrit of 27.0, platelet count 174. Differential is within normal limits. Serum adjunct instructor chemistry giuseppe on 04/21/2017 show a sodium of 139, potassium of 4.2, chloride of 112, bicarbonate of 21, BUN of 9, creatinine of 0.9. Influenza PCRs were negative on 04/18. Vancomycin trough on 04/20 is 6.5. Microbiologic data: Patient had a buttock swab dated 04/19/2017, shows 1+ polymorphonuclear white ce lls. The growth is mixed cutaneous nuno with rare amounts of group A strep found. ASSESSMENT: Perirectal phlegmon on the left side, suspect secondary to the incision and drainage of the small thrombosed hemorrhoid. There does not appear to be a drainable focus of collection here. I do not believe the group A strep on the culture of the buttock swab is indicative of the causative agent here. Given the mechanism of infection in a rectal surgery, I suspect that breadth of coverage is still important. However at this point, I do not believe that there is significant reason to con tinue vancomycin for coverage of resistant gram positives. I suspect ertapenem alone would be able t o accomplish this. We will discontinue the vancomycin today, and continue on with ertapenem monother apy. PLAN: 1. Continue ertapenem at 1 g daily. 2. Discontinue vancomycin. 3. Follow her clinical course of improvement. /[id number]/MODL
[2017-04-22] MEDS: ACETAMINOPHEN 325 MG TAB PO PRN (05:51)
[2017-04-22 05:59] LABS: PLATELET COUNT 208 10^3/uL (150-400)
[2017-04-22] MEDS ORDERED: COSYNTROPIN 0.25 MG/2 ML SYRINGE IVP ONE (06:00)
[2017-04-22] MEDS: ERTAPENEM 1 GM in NS 100 ML IV SCH (08:27)
[2017-04-22] MEDS: Mometasone/Formoterol [Dulera 200 Mcg/5 Mcg Inhaler] IH SCH ×2 (08:29→21:24)
[2017-04-22] MEDS: BECLOMETHASONE QVAR 80 MDI IH SCH ×2 (08:29→21:24)
[2017-04-22] MEDS: TIOTROPIUM INHALER 18 MCG/DOSE 5 DOSE/MDI IH SCH (08:30)
[2017-04-22] MEDS: carBAMazepine ER 200 MG TAB PO SCH ×2 (08:33→21:42)
[2017-04-22] MEDS: PANTOPRAZOLE SODIUM 40 MG TAB PO SCH (08:34)
[2017-04-22] MEDS: GABAPENTIN 300 MG CAP PO SCH ×2 (08:34→21:42)
--- NOTE | 2017-04-22 12:26 | PDANEPAE ---
ANE History of Present Illness 61 year old female w/ PMHx of Asthma, OCTAVIA on CPAP, Bi-polar disorder and recent hemorrhoid excision presents for exam under anesthesia. ANE Past Medical History - Cardiovascular History Hx Hypertension: No Hx Arrhythmias: No Hx Chest Pain: No Hx Coronary Artery / Peripheral Vascular Disease: No Hx CHF / Valvular Disease: No Hx Palpitations: No - Pulmonary History Hx COPD: No Hx Asthma/Reactive Airway Disease: Yes Hx Recent Upper Respiratory Infection: No Hx Oxygen in Use at Home: No Hx Sleep Apnea: Yes Sleep Apnea Screening Result - Last Documented: Positive Pulmonary History Comment: OCTAVIA on CPAP - Neurologic History Hx Cerebrovascular Accident: No Hx Seizures: No Hx Dementia: No - Endocrine History Hx Diabetes: No Hypothyroid: No Hyperthyroid: No Obesity: no - Renal History Hx Renal Disorders: No - Liver History Hx Hepatic Disorders: No - Neurological & Psychiatric Hx Hx Neurological and Psychiatric Disorders: Yes Neurological / Psychiatric History Comment: Bipolar disorder - Cancer History Hx Cancer: No - Congenital Disorder History Hx Congenital Disorders: No - GI History GERD: moderate Gastrointestinal History Comment: Hemorrhoid - Other Health History Other Health History: anemia ANE Review of Systems Review of systems is: negative Review of Systems: - Exercise capacity Exercise capacity: >=4 METS ANE Patient History - Allergies Allergies/Adverse Reactions: No Known Allergies Allergy (Unverified 04/18/17 10:51) - Home Medications Home medications: home medication list seen and reviewed Home Medications: Acetaminophen [Tylenol 325mg (*)] 325 mg PO DAILY PRN 04/18/17 [Last Taken Unknown] Amoxicillin/Clavulanate Pot [Augmentin 875 MG TAB (*)] 875 mg PO BID PRN [Last Taken Unknown] Beclomethasone Qvar 80 [Qvar 80 (*)] 1 puffs IH BIDI 04/18/17 [Last Taken 21:00] Gabapentin [Neurontin 300 MG (*)] 300 mg PO BID 04/18/17 [Last Taken 04/17/17 21 :00] Ibuprofen [Motrin (*)] 200 mg PO DAILY PRN 04/18/17 [Last Taken 04/17/17 21:00] Ipratropium/Albuterol [Duoneb (*)] 3 ml IH QID PRN 04/18/17 [Last Taken Unknown] Mometasone/Formoterol [Dulera 200 Mcg/5 Mcg Inhaler] 2 puffs IH BID 04/18/17 [ Last Taken 04/17/17 21:00] Pantoprazole Sodium [Protonix 40mg (*)] 40 mg PO DAILY 04/18/17 [Last Taken ] QUEtiapine FUMARATE [Seroquel 200 mg (*)] 200 mg PO HS 04/18/17 [Last Taken ] Rizatriptan Benzoate [Rizatriptan] 10 mg PO DAILY PRN 04/18/17 [Last Taken Unknown] Tiotropium Inhaler [Spiriva Inhaler] 1 inh IH DAILY 04/18/17 [Last Taken ] Xolair 150mg 150 mg SQ Q30D 04/18/17 [Last Taken 04/10/17] carBAMazepine ER [Tegretol Xr] 400 mg PO BID 04/18/17 [Last Taken 04/17/17 21:00 ] diphenhydrAMINE [Benadryl 25 MG (*)] 25 - 50 mg PO DAILY PRN 04/18/17 [Last Taken Unknown] hydrOXYzine HCL [hydrOXYzine HCL (RX)] 50 mg PO Q8HRS PRN 04/18/17 [Last Taken 04/17/17 21:00] methylPREDNISolone [Methylprednisolone] 4 mg PO DAILY PRN 04/18/17 [Last Taken Unknown] traZODone [traZODONE 50MG (*)] 50 mg PO HS 04/18/17 [Last Taken 04/17/17] - NPO status NPO Status: no food or drink >8 hours NPO Since - Liquids (Date): 04/22/17 NPO Since - Liquids (Time): 00:05 NPO Since - Solids (Date): 04/21/17 NPO Since - Solids (Time): 18:00 - Anes Hx Anes Hx: no prior problems - Smoking Hx Smoking Status: Never smoked Marijuana use: No - Alcohol Use Alcohol Use: Occasionally - Family Anes Hx Family Anes Hx: neg - N/A ANE Labs/Vital Signs - Labs Result Diagrams: 04/22/17 05:44 04/21/17 03:50 - Vital Signs Vital Signs: reviewed preoperatively; see RN documention for details Blood Pressure: 126/66 Heart Rate: 69 Respiratory Rate: 16 O2 Sat (%): 98 Height: 170.18 cm Weight: 97.522 kg ANE Physical Exam - Airway Neck exam: FROM Mallampati Score: Class 2 Mouth exam: normal dental/mouth exam - Pulmonary Pulmonary: no respiratory distress - Cardiovascular Cardiovascular: regular rate and rhythym - ASA Status ASA Status: II, III ANE Anesthesia Plan Anesthesia Plan: general endotracheal anesthesia, GA w LMA
--- NOTE | 2017-04-22 12:27 | PCMIDPN ---
Assessment/Plan: Assessment/Plan: 1. left buttock erythema/induraiton with perirectal phlegmon:- -Likely polymicrobial involvement - going to OR today for drainage -currently on invanz. - continue for now. meds invanz Subjective: afebrile. doens't feel well today. has pain. not moving bowel but passing gas. denies sob. Objective: Vital Signs Temp Pulse Resp BP Pulse Ox 36.9 C 69 16 126/66 H 98 04/22/17 12:00 04/22/17 12:00 04/22/17 12:00 04/22/17 12:00 04/22/17 12:00 Microbiology 04/19/17 14:40 Urine Culture - Final Urine,Clean Catch 04/19/17 11:30 Gram Stain - Final Buttock - Swab Wound Culture - Final Streptococcus Pyogenes Grp A Laboratory Results 04/22/17 05:44 04/21/17 03:50 04/21/17 04/22/17 04/23/17 05:59 05:59 05:59 Intake Total 4525 350 Output Total 400 900 Balance 4125 -550 C-Reactive Protein 86.0 mg/L (<10.0) H 04/22/17 05:44 - Physical Exam General Appearance: alert, no apparent distress Respiratory: lungs clear Cardiac/Chest: regular rate, rhythm Extremities: No swelling Abdomen: normal bowel sounds, non-tender, soft, No distended Skin: erythema (left buttocks/perirectal area with erythema, indurated. tender) ICD10 Worksheet Patient Problems: Problems Problem Status Onset Hypotension Acute Vomiting Acute
[2017-04-22] MEDS ORDERED: LR 1,000 ML IV ONE (12:32)
[2017-04-22] MEDS ORDERED: HYDROGEN PEROXIDE 236 ML BOTTLE TP ONE (13:31)
[2017-04-22] MEDS ORDERED: BUPIVACAINE 0.5% 30 ML SDV ONE (13:31)
[2017-04-22] MEDS ORDERED: METHYLENE BLUE 0.5% 50 MG/10 ML AMP ONE (13:34)
[2017-04-22] MEDS ORDERED: PROPOFOL 200 MG/20 ML VIAL ONE (14:23)
[2017-04-22] MEDS ORDERED: ONDANSETRON 4 MG/2 ML VIAL ONE (14:28)
[2017-04-22] MEDS ORDERED: DEXAMETHASONE 4 MG/ML VIAL ONE (14:28)
[2017-04-22] MEDS ORDERED: fentaNYL 100 MCG/2 ML INJ ONE (14:28)
[2017-04-22] MEDS ORDERED: NALOXONE HCL 0.4 MG/ML INJ IVP PRN (15:07)
[2017-04-22] MEDS ORDERED: LR 500 ML IV PRN (15:07)
[2017-04-22] MEDS ORDERED: NS 500 ML IV PRN (15:07)
[2017-04-22] MEDS ORDERED: fentaNYL 100 MCG/2 ML INJ IVP PRN (15:07)
--- NOTE | 2017-04-22 15:36 | POSTOPPROG ---
Post Op Note Date of Operation: 04/22/17 Surgeon: Jimmy Bolaños Anesthesiologist: Erich Zamora Anesthesia: GET(General Endotracheal) Procedure: EUA c enucleation of recurrent thrombosed hem, I&D of abscess pocket Findings: infalmmation, no true purulence, no fistulas or fissures Inf/Abcess present in the surg proc area at time of surgery?: Yes Depth: Deep Incisional (Fascial) EBL: Minimal Complications: none
--- NOTE | 2017-04-22 16:33 | POSTANESTH ---
Post Anesthetic Evaluation Cardiovascular Status: Normal, Stable, Similar to Pre-Op Cond Respiratory Status: Normal, Stable, Similar to Pre-op Cond. (O2 sat and supplemental O2 via N/C same level as in pre-op.) Level of Consciousness/Mental Status: Can Participate in Eval, Alert and Oriented Pain Control: Adequate, Prn Tx Ordered Nausea/Vomiting Control: Adequate, Prn Tx Ordered Complications Possibly Related to Anesthesia: None Noted
--- NOTE | 2017-04-22 17:25 | HOSPPROG ---
Hospitalist Progress Note Assessment/Plan: # Sepsis secondary to librado-anal cellulitis s/p excision of thrombosed external hemorrhoid POD #5 - BCx's NGTD. Lactate nl. WBC's trending down. Clinically, she has persistent erythema of the buttock with fluctuance and tenderness extending into perineal region. 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 However, hypotension noted last night which improved with IVF's -earnest stim normal - no steroids given pre-op # GEREMIAS - Cr normalized with IVF's # Asthma - no e/o acute exacerbation. Confirmed with pt that she does not take regular steroids. -cont home inhalers, prn albuterol # Hypoxia - requiring 2-3 liters since admission. Initial CXR negative- suspect obesity hypoventilation.- oxygen saturation 94% on 2L -IS -wean O2 as able Full code Dispo - cont inpt I have discussed the case with surgery - back to OR today for repair Subjective: right buttock with persistent pain Objective: Vital Signs Temp Pulse Resp BP Pulse Ox 36.7 C 71 18 139/81 H 94 04/22/17 16:30 04/22/17 16:30 04/22/17 16:30 04/22/17 16:30 04/22/17 16:30 Microbiology 04/19/17 14:40 Urine Culture - Final Urine,Clean Catch 04/19/17 11:30 Gram Stain - Final Buttock - Swab Wound Culture - Final Streptococcus Pyogenes Grp A Laboratory Results 04/22/17 05:44 04/21/17 03:50 04/21/17 04/22/17 04/23/17 05:59 05:59 05:59 Intake Total 4525 350 350 Output Total 400 900 10 Balance 4125 -550 340 PT 13.6 SEC (12.0-15.0) 04/18/17 11:15 INR 1.05 (0.83-1.16) 04/18/17 11:15 - Physical Exam Constitutional: obese Eyes: anicteric sclera Ears, Nose, Mouth, Throat: moist mucous membranes Cardiovascular: regular rate and rhythym Respiratory: no respiratory distress Gastrointestinal: normoactive bowel sounds, soft, non-tender abdomen Genitourinary: no bladder fullness Skin: warm Musculoskeletal: No asymmetric calves Neurologic: AAOx3 Psychiatric: interacting appropriately Lymph, Heme, Immunologic: no cervical LAD ICD10 Worksheet Patient Problems: Problems Problem Status Onset Hypotension Acute Vomiting Acute
[2017-04-22] MEDS: DOCUSATE SODIUM 100 MG CAP PO SCH ×2 (18:16→21:42)
[2017-04-22] MEDS: CALCIUM CARBONATE 500 MG TAB PO SCH ×2 (18:16→21:42)
[2017-04-22] MEDS: OXYCODONE/APAP 5/325 TAB PO PRN ×2 (19:24→23:51)
[2017-04-22] MEDS: HYDROmorphone HCL/NS/PF 0.4 MG/2 ML SYR IVP PRN (21:38)
[2017-04-22] MEDS: QUEtiapine FUMARATE 200 MG TAB PO SCH (21:42)
[2017-04-22] MEDS: traZODone 50 MG TAB PO SCH (21:42)
[2017-04-23] MEDS: ALTEPLASE 2 MG VIAL IVP PRN ×2 (04:52→04:53)
[2017-04-23] MEDS: Mometasone/Formoterol [Dulera 200 Mcg/5 Mcg Inhaler] IH SCH ×2 (09:37→20:47)
[2017-04-23] MEDS: TIOTROPIUM INHALER 18 MCG/DOSE 5 DOSE/MDI IH SCH (09:37)
[2017-04-23] MEDS: BECLOMETHASONE QVAR 80 MDI IH SCH ×2 (09:37→21:17)
[2017-04-23] MEDS: HYDROmorphone HCL/NS/PF 0.4 MG/2 ML SYR IVP PRN (09:59)
[2017-04-23] MEDS: GABAPENTIN 300 MG CAP PO SCH ×2 (10:03→20:18)
[2017-04-23] MEDS: carBAMazepine ER 200 MG TAB PO SCH ×2 (10:03→20:18)
[2017-04-23] MEDS: DOCUSATE SODIUM 100 MG CAP PO SCH (10:03)
[2017-04-23] MEDS: PANTOPRAZOLE SODIUM 40 MG TAB PO SCH (10:04)
[2017-04-23] MEDS: CALCIUM CARBONATE 500 MG TAB PO SCH ×2 (10:04→20:18)
--- NOTE | 2017-04-23 10:48 | ASMTCMCOM ---
CM Note CM Note Notes: Pt went back to OR yesterday for repair of a fistula but still independent with mobility. Current Discharge Plan: Pt will dc home w/support of when medically stable, CM available for any changes. Date Signed: 04/23/2017 10:48 AM Electronically Signed By:Marilu Blake RN
[2017-04-23] MEDS: ERTAPENEM 1 GM in NS 100 ML IV SCH (11:35)
[2017-04-23] MEDS ORDERED: HYDROmorphONE/DILAUDID 1 MG/ML INJ IVP ONE (13:16)
--- NOTE | 2017-04-23 14:00 | PCMIDPN ---
Assessment/Plan: L buttock cellulitis associated with perianal/ischial abscess; now s/p bedside I &D and I&D under anesthesia (without ongoing evidence of undrained pus) and enucleation of recurrent thrombosed hemorrhoid - this is my first exam and shows persistent cellulitis but the area surrounding the I and D site is soft and intensity of erythema is only moderate. Culture showed group a strep, but some suspicion for role of gram-negative rods/anaerobes --will narrow antibiotics to Unasyn with hopes to transition to Augmentin in the next couple days --continue to monitor in the hospital Subjective: Patient concerned about length of hospitalization. No diarrhea, no rash still cannot sit on L buttock Objective: Vital Signs Temp Pulse Resp BP Pulse Ox 36.6 C 83 16 136/72 H 91 L 04/23/17 12:00 04/23/17 12:00 04/23/17 08:00 04/23/17 12:00 04/23/17 12:00 Laboratory Results 04/23/17 05:35 04/21/17 03:50 04/22/17 04/23/17 04/24/17 05:59 05:59 05:59 Intake Total 350 900 550 Output Total 900 3010 600 Balance -550 -2110 -50 C-Reactive Protein 86.0 mg/L (<10.0) H 04/22/17 05:44 - Physical Exam General Appearance: alert, no apparent distress EENT: No scleral icterus Respiratory: chest non-tender, No accessory muscle use Neck: supple Cardiac/Chest: regular rate, rhythm, No systolic murmur Extremities: No pedal edema Rectal: other (Multiple hemorrhoids in the perirectal area, noninflamed: L medial buttock, perianal area with round area of erythema, soft, wound tracks 3cm deep, no purulence just serosang drainage, mild tenderness to palpation) Skin: No rash Neuro/Psych: alert, normal mood/affect, oriented x 3 ICD10 Worksheet Patient Problems: Problems Problem Status Onset Hypotension Acute Vomiting Acute
[2017-04-23] MEDS ORDERED: MAGNESIUM HYDROXIDE 30 ML UDCUP PO PRN (14:04)
--- NOTE | 2017-04-23 14:32 | SOAPPROG ---
SOAP Progress Note Assessment/Plan: Assessment/Plan: 61 Y F s/p office I&D of thrombosed hemorrhoid, admitted soon afterwards c malaise, N/V; s/p bedside I&D of perianal/ischial abscess; now s/p I&D under anesthesia and enucleation of recurrent thrombosed hemorrhoid, POD#1. Seen and examined c ID. Dressing changed. +localized erythema and induration at I&D site. Negligible drainage--minor serosanguinous. Pt sore, but overall feeling better and reports less swelling. Systemic symptoms of malaise, N/V resolved. Needs observation overnight. If doing well, could consider d/c tomorrow. Will have wound care needs and potentially IV abx needs. 04/23/17 14:27 Objective: Vital Signs Temp Pulse Resp BP Pulse Ox 36.6 C 83 16 136/72 H 91 L 04/23/17 12:00 04/23/17 12:00 04/23/17 09:35 04/23/17 12:00 04/23/17 12:00 Laboratory Results 04/23/17 05:35 04/21/17 03:50 04/22/17 04/23/17 04/24/17 05:59 05:59 05:59 Intake Total 350 900 550 Output Total 900 3010 600 Balance -550 -2110 -50 PT 13.6 SEC (12.0-15.0) 04/18/17 11:15 INR 1.05 (0.83-1.16) 04/18/17 11:15 ICD10 Worksheet Patient Problems: Problems Problem Status Onset Hypotension Acute Vomiting Acute
[2017-04-23] MEDS: POLYETHYLENE GLYCOL 3350 17 GM PKT PO SCH (15:33)
[2017-04-23] MEDS: OXYCODONE/APAP 5/325 TAB PO PRN ×2 (15:34→20:42)
[2017-04-23] MEDS: ALBUTEROL 3 ML DEYVIAL IH PRN (17:50)
[2017-04-23] MEDS: AMPICILLIN/SULBACTAM 3 GM in NS 100 ML IV SCH (18:02)
--- NOTE | 2017-04-23 18:29 | HOSPPROG ---
Hospitalist Progress Note Assessment/Plan: Assessment: 61 yo F p/w sepsis 2/2 librado-anal cellulitis Plan: # Sepsis. In setting of librado-anal cellulitis, s/p source control excision of thrombosed external hemorrhoid w/ MRI demonstrating transphincteric fistula - POD #[address] oBlaños - d/w Dr. Young, ID consult appreciated, adjusting to Unasyn to gauge response prior to using Augmentin as outpatient - adjusting pain control to PO Rx, working on mobility - counseled patient that wound care/mgmt at direction of gen surg, currently requiring daily packing, d/w case mgmt and working on arranging daily packing change as outpt - normal earnest stim test, no indication for ongoing steroids - encourage PO miralax to reduce constipation and exacerbating surg area # GEREMIAS. 2/2 hypovolemia, Cr normalized with IVF's # Asthma. Chronic, no e/o acute exacerbation - cont home inhalers, prn albuterol # Suspected atelectasis. Ongoing hypoxia, cont IS, get room air sat Diet. Regular PPx. High risk, lovenox 40 Code. Full Dispo. ADD 04/24 pending stability of above. Subjective: counseled patient regarding home care requirements Objective: Vital Signs Temp Pulse Resp BP Pulse Ox 36.7 C 70 18 136/72 H 95 04/23/17 15:53 04/23/17 17:45 04/23/17 17:45 04/23/17 15:53 04/23/17 17:45 Laboratory Results 04/23/17 05:35 04/21/17 03:50 04/22/17 04/23/17 04/24/17 05:59 05:59 05:59 Intake Total 350 900 550 Output Total 900 3010 600 Balance -550 -2110 -50 PT 13.6 SEC (12.0-15.0) 04/18/17 11:15 INR 1.05 (0.83-1.16) 04/18/17 11:15 - Time Spent With Patient Time Spent with Patient: greater than 35 minutes Time Spent with Patient: Greater than 35 minutes spent on this patients care, greater than 50% of time spent counseling, educating, and coordinating care regarding the above mentioned plan. - Physical Exam Constitutional: no apparent distress, uncomfortable, No not in pain (mild in rectum) Cardiovascular: regular rate and rhythym, no murmur, rub, or gallop, No edema Respiratory: no respiratory distress, no rales or rhonchi, reduced air movement (bilat bases) Gastrointestinal: normoactive bowel sounds, soft, non-tender abdomen, no palpable masses, No distension Neurologic: AAOx3, sensation intact bilaterally Psychiatric: interacting appropriately, not anxious, not encephalopathic, thought process linear ICD10 Worksheet Patient Problems: Problems Problem Status Onset Vomiting Acute Hypotension Acute
[2017-04-23] MEDS: traZODone 50 MG TAB PO SCH (20:18)
[2017-04-23] MEDS: SENNOSIDES/DOCUSATE SODIUM TAB PO SCH (20:18)
[2017-04-23] MEDS: QUEtiapine FUMARATE 200 MG TAB PO SCH (20:18)
[2017-04-24] MEDS: AMPICILLIN/SULBACTAM 3 GM in NS 100 ML IV SCH ×2 (00:10→05:31)
[2017-04-24] MEDS: OXYCODONE/APAP 5/325 TAB PO PRN ×3 (05:30→15:32)
[2017-04-24 08:16] LABS: PLATELET COUNT 335 10^3/uL (150-400)
[2017-04-24] MEDS: BECLOMETHASONE QVAR 80 MDI IH SCH (09:15)
[2017-04-24] MEDS: ALBUTEROL 3 ML DEYVIAL IH PRN (09:19)
[2017-04-24] MEDS: Mometasone/Formoterol [Dulera 200 Mcg/5 Mcg Inhaler] IH SCH (09:21)
[2017-04-24] MEDS: TIOTROPIUM INHALER 18 MCG/DOSE 5 DOSE/MDI IH SCH (09:21)
[2017-04-24] MEDS: carBAMazepine ER 200 MG TAB PO SCH (10:01)
[2017-04-24] MEDS: ENOXAPARIN 40 MG/0.4 ML SYR SC SCH (10:01)
[2017-04-24] MEDS: CALCIUM CARBONATE 500 MG TAB PO SCH (10:01)
[2017-04-24] MEDS: GABAPENTIN 300 MG CAP PO SCH (10:01)
[2017-04-24] MEDS: SENNOSIDES/DOCUSATE SODIUM TAB PO SCH (10:01)
[2017-04-24] MEDS: PANTOPRAZOLE SODIUM 40 MG TAB PO SCH (10:01)
[2017-04-24] MEDS: POLYETHYLENE GLYCOL 3350 17 GM PKT PO SCH (10:13)
[2017-04-24] MEDS ORDERED: ERTAPENEM 1 GM in NS 100 ML IV ONE (11:26)
--- NOTE | 2017-04-24 11:31 | PDIAF ---
- Diagnosis Diagnosis: Perirectal abscess Code Status: Full Code - Medication Management Discharge Medications: Medications to Continue on Transfer Acetaminophen [Tylenol 325mg (*)] 325 mg PO DAILY PRN 04/18/17 [Last Taken Unknown] Amoxicillin/Clavulanate Pot [Augmentin 875 MG TAB (*)] 875 mg PO BID PRN [Last Taken Unknown] Beclomethasone Qvar 80 [Qvar 80 (*)] 1 puffs IH BIDI 04/18/17 [Last Taken 21:00] Gabapentin [Neurontin 300 MG (*)] 300 mg PO BID 04/18/17 [Last Taken 04/17/17 21 :00] Ibuprofen [Motrin (*)] 200 mg PO DAILY PRN 04/18/17 [Last Taken 04/17/17 21:00] Ipratropium/Albuterol [Duoneb (*)] 3 ml IH QID PRN 04/18/17 [Last Taken Unknown] Mometasone/Formoterol [Dulera 200 Mcg/5 Mcg Inhaler] 2 puffs IH BID 04/18/17 [ Last Taken 04/17/17 21:00] Pantoprazole Sodium [Protonix 40mg (*)] 40 mg PO DAILY 04/18/17 [Last Taken ] QUEtiapine FUMARATE [Seroquel 200 mg (*)] 200 mg PO HS 04/18/17 [Last Taken ] Rizatriptan Benzoate [Rizatriptan] 10 mg PO DAILY PRN 04/18/17 [Last Taken Unknown] Tiotropium Inhaler [Spiriva Inhaler] 1 inh IH DAILY 04/18/17 [Last Taken ] Xolair 150mg 150 mg SQ Q30D 04/18/17 [Last Taken 04/10/17] carBAMazepine ER [Tegretol Xr] 400 mg PO BID 04/18/17 [Last Taken 04/17/17 21:00 ] diphenhydrAMINE [Benadryl 25 MG (*)] 25 - 50 mg PO DAILY PRN 04/18/17 [Last Taken Unknown] hydrOXYzine HCL [hydrOXYzine HCL (RX)] 50 mg PO Q8HRS PRN 04/18/17 [Last Taken 04/17/17 21:00] methylPREDNISolone [Methylprednisolone] 4 mg PO DAILY PRN 04/18/17 [Last Taken Unknown] traZODone [traZODONE 50MG (*)] 50 mg PO HS 04/18/17 [Last Taken 04/17/17] [place] Antibiotics: Ertapenem 1 g IV Q 24 hours [place] Antibiotic Stop Date: 04/30/17 Discharge Medications: Refer to the Discharge Home Medication list for PRN reason. PICC Care - Routine: Yes - Labs/Radiology CBC w/diff Date: 04/28/17 CMP Date: 04/28/17 Call or Fax Lab and Imaging Results to: Dr. Young [phone] - Follow Up Care Current Providers and Referrals: Branden Herrera MD [Primary Care Provider] - As per Instructions Brandie Young MD [Medical Doctor] - 04/29/17 11:00 am
--- NOTE | 2017-04-24 11:52 | PCMIDPN ---
Assessment/Plan: Assessment/Plan: * Left buttock cellulitis/perianal abscess status post incision and drainage with growth of group A Streptococcus: Given clinical appearance, think will need to continue with IV antibiotics for resolution. Patient would like to do this at home. Will have interventional Radiology assess PICC line given poor functionality. Will transition Unasyn back to ertapenem for outpatient daily administration. Favor continued therapy against mixed nuno as enteric gram- negative rods and anaerobes still may be contributing based on location. Follow -up in our office next week. 04/24/17 11:48 Subjective: Patient with persistent left-sided buttock and perianal pain. PICC line has been difficult to draw although flushed this a.m.. Objective: Vital Signs Temp Pulse Resp BP Pulse Ox 36.8 C 69 24 H 123/70 H 88 L 04/24/17 08:00 04/24/17 09:25 04/24/17 09:25 04/24/17 08:00 04/24/17 09:25 Laboratory Results 04/24/17 07:20 04/24/17 05:00 04/23/17 04/24/17 04/25/17 05:59 05:59 05:59 Intake Total 900 900 Output Total 3010 1400 Balance -2110 -500 C-Reactive Protein 86.0 mg/L (<10.0) H 04/22/17 05:44 Unasyn # 1 Antibiotics # 7 - Physical Exam General Appearance: alert, no apparent distress, non-toxic EENT: No scleral icterus Rectal: other (Erythema with induration around incision and drainage site over left buttock with some overlying stool contamination; minimal amount of drainage ; moderately tender) - Line/s RUE PICC Lines: No drainage, No erythema ICD10 Worksheet Patient Problems: Problems Problem Status Onset Hypotension Acute Vomiting Acute
[2017-04-24 12:10] VITALS: BP 135/77; PULSE 71; RESP 18; TEMP 98.2
--- NOTE | 2017-04-24 12:45 | ASMTCMCOM ---
CM Note CM Note Notes: Spoke with pt and dtr re; dc poc. Pt will dc home w/ IV abx, Cheli at [facility] notified. Pt declines need for help w/wound care, states dtr will do daily packing. Advised pt that home health RN is always set up for home infusion. Current DC Plan: Home w/[facility] home infusion and supplies for wound care. Date Signed: 04/24/2017 12:45 PM Electronically Signed By:Marilu Blake RN
--- NOTE | 2017-04-24 13:06 | PDIAF ---
- Diagnosis Diagnosis: Perirectal abscess Code Status: Full Code - Medication Management Discharge Medications: Medications to Continue on Transfer Acetaminophen [Tylenol 325mg (*)] 325 mg PO DAILY PRN 04/18/17 [Last Taken Unknown] Beclomethasone Qvar 80 [Qvar 80 (*)] 1 puffs IH BIDI 04/18/17 [Last Taken 21:00] Gabapentin [Neurontin 300 MG (*)] 300 mg PO BID 04/18/17 [Last Taken 04/17/17 21 :00] Ibuprofen [Motrin (*)] 200 mg PO DAILY PRN 04/18/17 [Last Taken 04/17/17 21:00] Ipratropium/Albuterol [Duoneb (*)] 3 ml IH QID PRN 04/18/17 [Last Taken Unknown] Mometasone/Formoterol [Dulera 200 Mcg/5 Mcg Inhaler] 2 puffs IH BID 04/18/17 [ Last Taken 04/17/17 21:00] Pantoprazole Sodium [Protonix 40mg (*)] 40 mg PO DAILY 04/18/17 [Last Taken ] QUEtiapine FUMARATE [Seroquel 200 mg (*)] 200 mg PO HS 04/18/17 [Last Taken ] Rizatriptan Benzoate [Rizatriptan] 10 mg PO DAILY PRN 04/18/17 [Last Taken Unknown] Tiotropium Inhaler [Spiriva Inhaler (RX)] 1 inh IH DAILY 04/18/17 [Last Taken ] Xolair 150mg 150 mg SQ Q30D 04/18/17 [Last Taken 04/10/17] carBAMazepine ER [Tegretol Xr] 400 mg PO BID 04/18/17 [Last Taken 04/17/17 21:00 ] diphenhydrAMINE [Benadryl 25 MG (*)] 25 - 50 mg PO DAILY PRN 04/18/17 [Last Taken Unknown] hydrOXYzine HCL [hydrOXYzine HCL (RX)] 50 mg PO Q8HRS PRN 04/18/17 [Last Taken 04/17/17 21:00] traZODone [traZODONE 50MG (*)] 50 mg PO HS 04/18/17 [Last Taken 04/17/17] Ertapenem [INVanz] 1 gm IV DAILY #6 vial 04/24/17 [Last Taken Unknown] Polyethylene Glycol 3350 [Miralax 17 gm (*)] 17 gm PO DAILY pkt 04/24/17 [Last Taken Unknown] Sennosides/Docusate Sodium [Senokot-S] 1 tab PO BID #60 tab 04/24/17 [Last Taken Unknown] oxyCODONE/APAP 5/325 [Percocet 5/325 (*)] 1 - 2 tab PO Q4 PRN #60 tab 04/24/17 [ Last Taken Unknown] Enrollment Management Manager Antibiotics: Ertapenem 1 g IV Q 24 hours Mcfp Antibiotic Stop Date: 04/30/17 Discharge Medications: Refer to the Discharge Home Medication list for PRN reason. PICC Care - Routine: Yes - Orders Services needed: Home Care, Registered Nurse Home Care Face to Face: I certify that this patient was under my care and that I had the required [id number] encounter meeting the encounter requirements on the discharge day. My findings support the fact that the patient is homebound as defined in Home Care Face to Face Continued: CMS Chapter 7 Medicare Benefits Manual 30.1.1 , The condition of the patient is such that there exists a normal inability to leave home and consequently, leaving home would require a considerable and taxing effort. Diet Recommendation: no restrictions on diet Delacruz: Not applicable Wound Care Instructions: 06/26" iodoform gauze packed daily, cover with gauze or menstrual pad - Labs/Radiology CBC w/diff Date: 04/28/17 CMP Date: 04/28/17 Call or Fax Lab and Imaging Results to: Dr. Young [phone] - Follow Up Care Current Providers and Referrals: Branden Herrera MD [Primary Care Provider] - As per Instructions Jimmy Bolaños MD [Medical Doctor] - follow up in 1 week Brandie Young MD [Medical Doctor] - 04/29/17 11:00 am
[2017-04-24 13:27] VITALS: O2SAT 89
--- NOTE | 2017-04-24 14:07 | ASMTCMCOM ---
CM Note CM Note Notes: D/w , final orders faxed. Cheli at [facility] notified, she has set up [facility] homecare. Dtr to do daily wound care, family to transport pt back home. Date Signed: 04/24/2017 02:06 PM Electronically Signed By:Marilu Blake RN
--- NOTE | 2017-04-24 14:07 | ASMTCMCOM ---
CM Note CM Note Notes: D/w , final orders faxed. Cheli at [facility] notified, she has set up [facility] homecare. Dtr to do daily wound care, family to transport pt back home. Date Signed: 04/24/2017 02:06 PM Electronically Signed By:Marilu Blake RN
--- NOTE | 2017-04-24 14:07 | ASMTCMCOM ---
CM Note CM Note Notes: D/w , final orders faxed. Cheli at [facility] notified, she has set up [facility] homecare. Dtr to do daily wound care, family to transport pt back home. Date Signed: 04/24/2017 02:06 PM Electronically Signed By:Marilu Blake RN
--- NOTE | 2017-04-24 17:30 | PDDCSUM ---
Discharge Summary Discharge Summary: DISCHARGE SUMMARY FOLLOW-UP ITEMS: Outpatient wound reassessment at Dr. Jimmy Bolaños office DATE OF ADMISSION: 04/18/2017 DATE OF DISCHARGE: 04/24/2017 DISCHARGE DIAGNOSES: 1. Sepsis present on admission 2. Acute left buttock cellulitis and abscess related to excision of thrombosed hemorrhoid in office, present on admission 3. Acute kidney injury 4. Chronic asthma 5. Suspected acute atelectasis 6. Acute blood loss anemia CONSULTATIONS: General surgery, Infectious Disease PROCEDURES / IMAGIN04/19/2017 incision and drainage, 04/22/2017 repeat incision and drainage of abscess pocket CHIEF COMPLAINT: Acute perirectal pain SUBJECTIVE: Pain is well managed at time of discharge PHYSICAL EXAM ON DISCHARGE: Systolic blood pressure 120, heart rate 60, afebrile overnight, satting well on room air, slight induration and blanchable skin around the incised perirectal area with tenderness LABS ON DISCHARGE: Creatinine 0.8, white blood count 8500, hemoglobin 9.4, potassium 4.1 HOSPITAL COURSE BY PROBLEM: 1. Sepsis. Present on admission, evidenced by Qsofa score of 2, sofa calculated at 4, meeting sepsis-3 criteria, with concomitant severe leukocytosis , hypotension, requiring empiric IV fluids and antibiotics. Patient hemodynamically stabilized, white blood cell count down trended to normal, occurring after surgical source control. 2. Acute left buttock cellulitis and abscess related to excision of thrombosed hemorrhoid in the office prior to admission. The patient had erythema induration, and fluctuance, requiring incision and drainage x2, now with local wound packing and recommendations for daily packing change. Patient will be seen in the office by Dr. Bolaños in 1 week, and Infectious Disease has recommended ongoing IV antibiotics. Patient has a PICC line, and she will continue receiving IV ertapenem. She is currently receiving Percocet for pain control. 3. Acute kidney injury. Secondary to sepsis and hypovolemia, received IV fluids , creatinine down trended to normal by discharge. 4. Acute atelectasis. Resulting in intermittent hypoxia, patient use incentive spirometer, she is not requiring supplemental oxygen at time of discharge. 5. Acute blood loss anemia. Postoperative, evidenced by hemoglobin down trending from 13->9, stabilized in the 9s range, did not require transfusion, monitor as an outpatient. DISCHARGE MEDICATIONS: Please see official discharge medication reconciliation sheet in chart , continue or dependent a.m., Percocet as needed, Senokot S and MiraLax. DISCHARGE INSTRUCTIONS: Please follow up with Dr. Bolaños in the short term, follow-up appoint with Dr. Brandie Young scheduled TIME SPENT: Greater than 30 minutes were spent on direct patient care, as well as discharge planning and preparation.
--- NOTE | 2017-04-25 09:43 | ASDISCHSUM ---
Discharge Information Plan Status:IV ABX/Infusion Medically Cleared to Leave: Discharge Date:04/24/2017 03:44 PM CM D/C Disposition:Home, Routine, Self-Care ADT D/C Disposition:[facility] Projected Discharge Date:04/24/2017 05:00 PM Transportation at D/C:Family Discharge Delay Reason: Follow-Up Date:04/24/2017 05:00 PM Discharge Slot: Final Diagnosis: Placement Information Referral Type:Home Infusion Referral ID:[id number] Provider Name:[facility] [place] Address 1:[address] , [address] Phone Number: Address 2: Fax Number: City:[place] Selection Factors: State:[place] Patient Contact Information Contact Name:TERESAMarie Relationship: Address:[address] Work Phone: City:[place] Alternate Phone: State/Zip Code:[place] [address] Email: Financial Information Financial Class:HMO and PPO Plans Primary Plan Desc: OUT OF STATE PPO Primary Plan Number:[id number] Secondary Plan Desc: Secondary Plan Number: Assessment Information [facility] CM Progress Note CM Note CM Note Notes: Pt. is a 61-year-old woman admitted in observation status w/ nausea, vomiting, and general malaise. Per chart, Pt. had hemorrhoid incisional drainage yesterday. Pt. lives w/ her , Isaiah. Plan for independent d/c when ready. Date Signed: 04/18/2017 02:43 PM Electronically Signed By:Jo-Ann Law LCSW [facility] CM Progress Note CM Note CM Note Notes: Pt had stat team call yesterday afternoon, she is septic and had blood cx drawn. PT to evaluate her when she is feeling better, otherwise CM anticipates she will be independent when medically stable, CM w/f. Date Signed: 04/19/2017 11:08 AM Electronically Signed By:Marilu Blake RN [facility] CM Progress Note CM Note CM Note Notes: Pt went back to OR yesterday for repair of a fistula but still independent with mobility. Current Discharge Plan: Pt will dc home w/support of when medically stable, CM available for any changes. Date Signed: 04/23/2017 10:48 AM Electronically Signed By:Marilu Blake RN [facility] CM Progress Note CM Note CM Note Notes: Spoke with pt and dtr re; dc poc. Pt will dc home w/ IV Cheli cantu at [facility] notified. Pt declines need for help w/wound care, states dtr will do daily packing. Advised pt that home health RN is always set up for home infusion. Current DC Plan: Home w/[facility] home infusion and supplies for wound care. Date Signed: 04/24/2017 12:45 PM Electronically Signed By:Marilu Blake RN [facility] CM Progress Note CM Note CM Note Notes: D/w , final orders faxed. Cheli at [facility] notified, she has set up [facility] homecare. Dtr to do daily wound care, family to transport pt back home. Date Signed: 04/24/2017 02:06 PM Electronically Signed By:Marilu Blake RN Intervention Information
--- NOTE | 2017-04-25 09:43 | ASDISCHSUM ---
Discharge Information Plan Status:IV ABX/Infusion Medically Cleared to Leave: Discharge Date:04/24/2017 03:44 PM CM D/C Disposition:Home, Routine, Self-Care ADT D/C Disposition:[facility] Projected Discharge Date:04/24/2017 05:00 PM Transportation at D/C:Family Discharge Delay Reason: Follow-Up Date:04/24/2017 05:00 PM Discharge Slot: Final Diagnosis: Placement Information Referral Type:Home Infusion Referral ID:[id number] Provider Name:[facility] [place] Address 1:[address] , [address] Phone Number: Address 2: Fax Number: City:[place] Selection Factors: State:[place] Patient Contact Information Contact Name:TERESAMarie Relationship: Address:[address] Work Phone: City:[place] Alternate Phone: State/Zip Code:[place] [address] Email: Financial Information Financial Class:HMO and PPO Plans Primary Plan Desc: OUT OF STATE PPO Primary Plan Number:[id number] Secondary Plan Desc: Secondary Plan Number: Assessment Information [facility] CM Progress Note CM Note CM Note Notes: Pt. is a 61-year-old woman admitted in observation status w/ nausea, vomiting, and general malaise. Per chart, Pt. had hemorrhoid incisional drainage yesterday. Pt. lives w/ her , Isaiah. Plan for independent d/c when ready. Date Signed: 04/18/2017 02:43 PM Electronically Signed By:Jo-Ann Law LCSW [facility] CM Progress Note CM Note CM Note Notes: Pt had stat team call yesterday afternoon, she is septic and had blood cx drawn. PT to evaluate her when she is feeling better, otherwise CM anticipates she will be independent when medically stable, CM w/f. Date Signed: 04/19/2017 11:08 AM Electronically Signed By:Marilu Blake RN [facility] CM Progress Note CM Note CM Note Notes: Pt went back to OR yesterday for repair of a fistula but still independent with mobility. Current Discharge Plan: Pt will dc home w/support of when medically stable, CM available for any changes. Date Signed: 04/23/2017 10:48 AM Electronically Signed By:Marilu Blake RN [facility] CM Progress Note CM Note CM Note Notes: Spoke with pt and dtr re; dc poc. Pt will dc home w/ IV Cheli cantu at [facility] notified. Pt declines need for help w/wound care, states dtr will do daily packing. Advised pt that home health RN is always set up for home infusion. Current DC Plan: Home w/[facility] home infusion and supplies for wound care. Date Signed: 04/24/2017 12:45 PM Electronically Signed By:Marilu Blake RN [facility] CM Progress Note CM Note CM Note Notes: D/w , final orders faxed. Cheli at [facility] notified, she has set up [facility] homecare. Dtr to do daily wound care, family to transport pt back home. Date Signed: 04/24/2017 02:06 PM Electronically Signed By:Marilu Blkae RN Intervention Information
--- NOTE | 2017-04-25 09:43 | ASDISCHSUM ---
Discharge Information Plan Status:IV ABX/Infusion Medically Cleared to Leave: Discharge Date:04/24/2017 03:44 PM CM D/C Disposition:Home, Routine, Self-Care ADT D/C Disposition:[facility] Projected Discharge Date:04/24/2017 05:00 PM Transportation at D/C:Family Discharge Delay Reason: Follow-Up Date:04/24/2017 05:00 PM Discharge Slot: Final Diagnosis: Placement Information Referral Type:Home Infusion Referral ID:[id number] Provider Name:[facility] [place] Address 1:[address] , [address] Phone Number: Address 2: Fax Number: City:[place] Selection Factors: State:[place] Patient Contact Information Contact Name:TERESAMarie Relationship: Address:[address] Work Phone: City:[place] Alternate Phone: State/Zip Code:[place] [address] Email: Financial Information Financial Class:HMO and PPO Plans Primary Plan Desc: OUT OF STATE PPO Primary Plan Number:[id number] Secondary Plan Desc: Secondary Plan Number: Assessment Information [facility] CM Progress Note CM Note CM Note Notes: Pt. is a 61-year-old woman admitted in observation status w/ nausea, vomiting, and general malaise. Per chart, Pt. had hemorrhoid incisional drainage yesterday. Pt. lives w/ her , Isaiah. Plan for independent d/c when ready. Date Signed: 04/18/2017 02:43 PM Electronically Signed By:Jo-Ann Law LCSW [facility] CM Progress Note CM Note CM Note Notes: Pt had stat team call yesterday afternoon, she is septic and had blood cx drawn. PT to evaluate her when she is feeling better, otherwise CM anticipates she will be independent when medically stable, CM w/f. Date Signed: 04/19/2017 11:08 AM Electronically Signed By:Marilu Blake RN [facility] CM Progress Note CM Note CM Note Notes: Pt went back to OR yesterday for repair of a fistula but still independent with mobility. Current Discharge Plan: Pt will dc home w/support of when medically stable, CM available for any changes. Date Signed: 04/23/2017 10:48 AM Electronically Signed By:Marilu Blake RN [facility] CM Progress Note CM Note CM Note Notes: Spoke with pt and dtr re; dc poc. Pt will dc home w/ IV Cheli cantu at [facility] notified. Pt declines need for help w/wound care, states dtr will do daily packing. Advised pt that home health RN is always set up for home infusion. Current DC Plan: Home w/[facility] home infusion and supplies for wound care. Date Signed: 04/24/2017 12:45 PM Electronically Signed By:aMrilu Blake RN [facility] CM Progress Note CM Note CM Note Notes: D/w , final orders faxed. Cheli at [facility] notified, she has set up [facility] homecare. Dtr to do daily wound care, family to transport pt back home. Date Signed: 04/24/2017 02:06 PM Electronically Signed By:Marilu Blake RN Intervention Information
== END 2017-04-24 15:44 | disposition home health service (06) | DRG 862 ==
LOC: F3E 14:27 → OBSVTOIN 04-19 09:58
PROVIDERS: ADMIT Surgery; ATTEND Internal Medicine
PROC: 02HV33Z Insertion of Infusion Device into Superior Vena Cava, Percutaneous Approach (ICD-10-PCS; 2017-04-18)
PROC: 0J990ZX Drainage of Buttock Subcutaneous Tissue and Fascia, Open Approach, Diagnostic (ICD-10-PCS; principal; 2017-04-19)
PROC: 0JJT0ZZ Inspection of Trunk Subcutaneous Tissue and Fascia, Open Approach (ICD-10-PCS; 2017-04-22)
DX: T81.4XXA Infection following a procedure, initial encounter (principal); A41.9 Sepsis, unspecified organism; K61.0 Anal abscess; N17.9 Acute kidney failure, unspecified; J98.11 Atelectasis; D62 Acute posthemorrhagic anemia; J45.909 Unspecified asthma, uncomplicated; E86.0 Dehydration; G47.33 Obstructive sleep apnea (adult) (pediatric); F31.9 Bipolar disorder, unspecified; Z79.51 Long term (current) use of inhaled steroids; Z96.653 Presence of artificial knee joint, bilateral
CPT/HCPCS: 96374; 97116-GP; 97161-GP; 97530-GP; A9585; C1751; G0378; J0171; J0295; J0610; J0834; J1100; J1170; J1335; J1650; J2405; J2704; J2997; J3010; J3370; Q9968